=== PATIENT | male | born 1985 | race Two or more races ===

== ENCOUNTER 2025-02-16 18:24 | Emergency (ER) | payer OTHER, MEDICAID ==
[~2025-02-16] VITALS: Ht 175.3 cm; Wt 106.6 kg
[2025-02-16] MEDS: IBUPROFEN 400 MG TABLET PO ONE (18:30)
[2025-02-16] MEDS ORDERED: IBUPROFEN 400 MG TABLET ONE (19:29)
[2025-02-16] MEDS ORDERED: NAPR-1164 PO (20:00)
[2025-02-16 21:19] VITALS: BP 138/87; TEMP 97.9; O2SAT 99
== END 2025-02-16 21:19 | disposition home or self-care (01) ==
LOC: ER 18:32
DX: S13.4XXA Sprain of ligaments of cervical spine, initial encounter (principal); M25.512 Pain in left shoulder; V49.40XA Driver injured in collision with unspecified motor vehicles in traffic accident, initial encounter; Y93.89 Activity, other specified; Y92.410 Unspecified street and highway as the place of occurrence of the external cause; Y99.8 Other external cause status
CPT/HCPCS: 71045-TC